=== PATIENT | female | born 1960 | race Caucasian/White ===

== ENCOUNTER 2024-02-16 06:58 | Observation (INO) ==
--- NOTE | 2024-01-02 15:25 | Anesthesiology Consultation ---
Date of Service January 02, 2024 Assessment & Plan (1) Encounter for pre-operative examination: - Infectious disease screening: Per assessment on 01/02/24: No known recent infectious disease contacts or current infectious disease symptoms. - Outpatient joint assessment: Pt currently scheduled for inpatient pathway. If surgeon requests review for outpatient joint pathway, patient is acceptable candidate for outpatient joint program from anesthesia standpoint pending surgeon's office assessment that patient is motivated, has good support and completes [facility] preop requirements. Chart Review Chart Review: Acceptable Risk for Surgery and Patient NOT seen in Pre Admission Testing History Surgery Operation Date: 02/16/24 09:00 Proposed Procedures p Right Anterior Total Hip Arthroplasty - Willian Peter DO Height/Weight Height: 5 ft 1.5 in Weight: 57.9 kg Allergies Allergy/AdvReac Type Severity Reaction Status Date / Time No Known Allergies Allergy Verified 12/22/23 07:58 Medications Home Medications Medication Instructions Recorded Confirmed Last Taken No Known Home Medications 12/22/23 12/22/23 Unknown Past Medical History Medical History Arthritis Hx of uterine prolapse Osteoporosis Exercise / Class Metabolic Activity II 4-5 Yardwork/Stairs/Walk up hill Past Family History Family History Other Atherosclerosis Breast cancer Family history non-contributory Past Surgical History Surgical History History of tonsillectomy Hx of colonoscopy Past Anesthesia History No Hx of Anesthesia Complications and No Family Hx of Anesthesia Complications History of PONV No Hx of PONV and No Hx of Motion Sickness Social History Smoking Status: Never smoker Do You Dip or Chew Tobacco: No Hx Alcohol Use: Yes alcohol intake frequency: a few times a month Hx Substance Use: No substance use type: does not use Review of Systems Patient denies chest pain, shortness of breath, dyspnea on exertion, fever, chills, cough, wheezing, palpitations. Physical Exam Vital Signs BP 105/67 P 54 TEMP 97.6 SP02 99%RA RESP 16 Physical Full cervical extension range of motion. Full TMJ range of motion. TMD 3 finger breaths Mallampati Score II Dentition: intact Lungs: clear throughout to auscultation Cardiac: regular rate and rhythm, no murmurs noted Spine: normal Carotid arteries: negative bruit Extremities: no LE edema Lab Results Anesthesia Preop Results Results Anesthesia Widget: WBC 8.37 K/ul (4.8-10.8) 01/02/24 Hgb 14.1 g/dl (12.0-16.0) 01/02/24 Hct 40.1 % (37.0-47.0) 01/02/24 Plt 348 K/uL (130-400) 01/02/24 Na 137 mmol/L (136-145) 01/02/24 K 4.1 mmol/L (3.5-5.1) 01/02/24 Cl 105 mmol/L (98-107) 01/02/24 CO2 27 mmol/L (21-32) 01/02/24 BUN 26 mg/dl (6-23) H 01/02/24 Creat 0.78 mg/dl (0.6-1.2) 01/02/24 Glucose Level 96 mg/dl (70-99(Fasting)) 01/02/24 PT 10.4 Seconds (9.0-12.0) 01/02/24 PTT 27 Seconds (21-31) 01/02/24 INR 1.0 (0.9-1.1) 01/02/24 Blood Type A Positive 01/02/24 Antibody Screen NEGATIVE 01/02/24 Testing Electrocardiogram Date: 01/02/24 SB at 50bpm. "Otherwise normal ECG" Chest X-Ray Date: 01/02/24 FINDINGS: No pneumothorax. No pleural effusions. The lungs are clear. Mild S- shaped scoliosis in [id number] degenerative disc disease within the thoracolumbar spine. The heart is normal in size. No acute fractures identified. IMPRESSION: No acute process.
--- NOTE | 2024-02-15 07:04 | History & Physical Report ---
Date of Service February 15, 2024 Assessment & Plan (1) Arthritis of right hip: We will proceed with a right total hip arthroplasty. Postoperatively she will be started on aspirin for DVT prophylaxis and kept overnight in the hospital for postop medical management. She plans to use [facility] upon discharge. History of Present Illness Chief Complaint: Osteoarthritis of the right hip. Primary Care Provider: Diego Mckenzie MD Kalyn is a pleasant 63-year-old female who has been dealing with chronic increasing right hip and groin pain. It is to the point where she cannot go on long walks anymore. She has lot of pain in her groin. It is affecting her quality of life. X-rays of clinical examination been diagnostic for osteoarthritis of the right hip. After failing conservative treatment, she has elected to proceed with a right total hip arthroplasty. Allergies Allergy/AdvReac Type Severity Reaction Status Date / Time No Known Allergies Allergy Verified 12/22/23 07:58 Home Medications Medication Instructions Recorded Confirmed Type No Known Home Medications 12/22/23 12/22/23 History Past Med/Surg History Problem List Arthritis of right hip Postmenopausal atrophic vaginitis Cystocele with uterine prolapse Uterine prolapse Medical History Hx of uterine prolapse Arthritis Osteoporosis Surgical History Hx of colonoscopy History of tonsillectomy Family History Other Atherosclerosis Breast cancer Family history non-contributory Social History Smoking Status: Never smoker Second Hand Exposure: No; Do You Dip or Chew Tobacco: No; Hx Alcohol Use: Yes Hx Substance Use: No Preferred Language: Pashto Communication Ability: Effective [employer] Associate Required: No Beliefs That Will Affect Care: None Current Living Situation: Spouse Feels Safe at Home: Yes Assistive Devices: Contacts Review of Systems All systems reviewed & are unremarkable except as noted in HPI & below. Physical Exam Physical examination of the right hip shows decreased range of motion. Pain with forced internal and external rotation. All of his pain is located in the groin.. Constitutional WD/WN, vitals as above Eyes PERRL, conjunctivae normal, anicteric sclerae ENMT external ear and nose normal, oropharynx normal Neck trachea midline, no thyromegaly Respiratory normal respiratory effort Cardiovascular RRR, no murmur, no edema Gastrointestinal (Abdomen) normal bowel sounds, soft, nontender, no hepatosplenomegaly Psychiatric A+Ox3, euthymic affect Results & Data Results & Data Laboratory Results . Diagnostic Findings X-rays of the right hip show advanced osteoarthritis with joint space narrowing, osteophyte formation, and cbnz-ne-wcig articulation. PG Care Time/CCT Total # of Minutes Spent Total Time Spent with Patient: Total time spent is greater than 50% in coordination of care (as documented) at patient's floor/unit and/or counseling patient: Coding Level of Care Code None Diagnoses Arthritis of right hip M16.11
[~2024-02-16 06:58] MED LIST: ROPIVACAINE 0.5% 5 MG/ML 30 ML VIAL ONE
--- OUTSIDE RECORDS SUMMARY | 2024-02-16 07:36 | External Medical Summary | Continuity of Care Document ---
Author Name Unknown Organization [address] [id number] Care Team Providers Care Funeral Location Manager Name Role Phone Diego Mckenzie Primary Care Physician [phone] [facility]counter [facility] [id number] Date(s): 01/31/24 - 01/31/[address] [address] [phone] Discharge Disposition: Home or Self Care Attending Physician: JONAH Yeung Tara Allergies, Adverse Reactions, Alerts No Known Allergies Medications Evenity 105 mg/1.17 mL subcutaneous solution Start: 01/11/24 4:03:00 PM EDT, 210 mg =, subQ, qmonth (30 days), Disp# 2.34 mL, Refills: 11, Pharmacy: [facility] Start Date: 01/11/24 Status: Ordered Problem List Condition Confirmation Course Effective Dates Status H ealth Status Informant Rash Confirmed Active Rash Confirmed Active Hamstring muscle strain 1 Confirmed Active Heel pain Confirmed Active Right hip pain Confirmed Active Hip pain, bilateral Confirmed Active Hyperkeratosis Confirmed Active Lentigo Confirmed Active Low back pain Confirmed Active Osteoporosis Confirmed Active 1right Procedures Procedure Date Related Diagnosis Body Site Status Tonsillectomy 1960 Completed History of tonsillectomy Completed Social History Social History Type Response Smoking Status Never smoked cigaret lee Sex Female Sex Representation Female (finding) Patient Care team information Care Team Personnel Name: JONAH Maurer, Kai E Position: Nurse Pract - Orthopaedic Surg Member Role: Lifetime Relationship Address: [address] [place] [address] [place] [id number] [place] Name: MD Mckenzie Paul R Position: Referring DIRECT Member Role: Primary Care Provider Address: [facility] [address] [facility] [place] [id number] [place] Name: Qamar Rosenberg Alisha Position: Pharmacist Member Role: Pharmacy - Lifetime Care Team Related Persons Name: FELICIANO AUGUST
[2024-02-16] MEDS: LR 500ML BOLUS, THEN 15ML/HR IV SCH (07:39)
[2024-02-16] MEDS: LR 60ML/HR IV SCH (07:39)
[2024-02-16] MEDS: dexAMETHasone**PF** 10 MG/ML VIAL IV SCH (07:40)
[2024-02-16] MEDS: ACETAMINOPHEN 500 MG TAB PO SCH ×2 (07:40→13:52)
[2024-02-16] MEDS: GABAPENTIN 300 MG CAP PO SCH (07:40)
[2024-02-16] MEDS: FAMOTIDINE 20 MG TAB PO SCH (07:40)
[2024-02-16] MEDS ORDERED: MIDAZOLAM HCL 1 MG/ML 2ML VIAL ONE (07:42)
[2024-02-16] MEDS ORDERED: PROPOFOL IV EMULSION 10 MG/ML 20 ML VIAL IV ONE (07:43)
--- NOTE | 2024-02-16 08:05 | History & Physical Bridge Note ---
Date of Service February 16, 2024 History & Physical Bridge Note I have examined the patient, reviewed the History & Physical and in the interval since the performance of the History & Physical I have noted the following changes of clinical significance: no changes noted
[2024-02-16] MEDS ORDERED: ATROPINE SULFATE 0.1 MG/ML 10ML SYR IV PRN (08:16)
[2024-02-16] MEDS ORDERED: ONDANSETRON INJ 2 MG/ML 2 ML VIAL IV PRN ×2 (08:16→11:14)
[2024-02-16] MEDS ORDERED: fentaNYL citrate PF 100 MCG/2 ML VIAL IV PRN (08:16)
[2024-02-16] MEDS ORDERED: ePHEDrine sulfate 50 MG/ML AMP IV PRN (08:16)
[2024-02-16] MEDS ORDERED: HYDROmorphone INJ 1 MG/ML SYRINGE IV PRN (08:16)
[2024-02-16] MEDS: TRANEXAMIC ACID 1,000 MG **IV Pre-op IV SCH (08:38)
[2024-02-16] MEDS: ceFAZolin 2000MG 2,000 MG/15 ML SYR IV SCH ×2 (08:52→17:22)
[2024-02-16] MEDS ORDERED: ePHEDrine sulfate 50 MG/5 ML SYR ONE (09:16)
[2024-02-16] MEDS: ORTHO JOINT ANESTHETIC ONE (09:30)
[2024-02-16] MEDS: TRANEXAMIC ACID 1,000 MG **IV Intra-op IV SCH (10:06)
--- NOTE | 2024-02-16 10:07 | Operative Report ---
PG Post Operative Report Pre & Post Diagnosis Operation Date: 02/16/24 08:55 Pre-Op Diagnosis: Arthritis of right hip Post-Op Diagnosis: Arthritis of right hip I identified the patient and participated in the time-out.: Yes Procedure Operation Date: 02/16/24 08:55 Actual Procedures p Right Anterior Total Hip Arthroplasty(Right) - Willian Peter DO Surgeon Willian Peter DO Divisional Merchandising Manager Willian Brooks PA-C Estimated Blood Loss 200 Findings Consistent with Post-Op Diagnosis Specimens Right femoral head Description of Procedure Implants used I used a ZimmerBiomet total hip arthroplasty system with a size 2 standard offset Avenir Complete stem, a 48 mm G7 cup with a 25mm screw, an E1 polyethylene liner, a 32 mm ceramic head with a -3.5 neck. Kalyn arrived at the hospital for the above procedure. She was seen in the preoperative holding area and the operative extremity was identified and signed. She was given a spinal anesthetic, a preoperative antibiotic, and TXA. She was then taken back to the operating room and laid on the table in the supine position. She was given basic sedation. The operative leg was secured to a Puristst leg positioner. The hip was then prepped and draped in sterile fashion. A timeout was done and the patient and the operative extremity was properly identified. An anterior approach was used. Dissection was taken down through the fascia and the tensor muscle belly was retracted laterally and the rectus was retracted medially. The circumflex vessels were identified and ligated. The capsule was then incised and tagged for later repair. The femoral neck was then cut and the femoral head was removed. The acetabulum was exposed. Time was spent doing a complete circumferential labral release. Sequential reaming of the acetabulum up to a size 47 reamer was done. Final reamings were done under fluoroscopy to ensure appropriate version. A Biomet 48 mm G7 cup was then impacted into place. A single 25 mm screw was placed. The E1 polyethylene liner was then snapped into place. Surrounding soft tissues were then injected with 100 cc of an orthopedic pain control cocktail. The proximal femur was then exposed. Sequential broaching up to a size 2 broach was done. Off that broach a size 32 head with a -3.5 neck was trialed. The hip was reduced and fluoroscopic images showed anatomic alignment of the implants in acceptable length. The broach was removed. The final size 2 standard offset Avenir Complete stem was then impacted into place. A ceramic 32 mm head with a -3.5 neck was then impacted onto the stem and the hip was reduced. Final fluoroscopic images showed anatomic alignment of the hip. The capsule was then closed with #1 Vicryl suture. A dilute betadyne lavage was then done for 3 minutes. The joint was then irrigated with normal saline solution. The fascia was closed with #1 PDS suture. Skin was closed with 2-0 Vicryl, marisa, and a Silverlon dressing. She was then transferred to a hospital bed and taken to the post anesthesia care unit in stable condition. She tolerated the procedure well. Willian Brooks PA-C, was present for the entire procedure. He was critical for patient positioning, prepping, draping, retraction exposure, wound closure and application of sterile dressing. I attest to the content of the Intraoperative Record and any orders documented therein. Any exceptions are noted below.
[2024-02-16] MEDS: ROPIV 0.5% 246mg, Ketorolac 30mg, EPINEPHrine 0.5mg in NSS INFIL SCH (10:11)
--- NOTE | 2024-02-16 10:44 | XRay Report ---
XR hip 1V RT w pelvis CLINICAL HISTORY: IN PACU - Post Surgical TECHNIQUE: 1 view of the right hip and single frontal view of the pelvis were obtained. Comparison: Comparison is made to hip radiographs 01/31/2014 FINDINGS: Patient is status post total hip arthroplasty with expected postsurgical changes including soft tissu e swelling and subcutaneous emphysema. IMPRESSION: Expected postoperative appearance status post placement of total hip arthroplasty. ACT 112: Negative or not required by law. Electronically signed by: Regis Bradford M.D. 02/16/2024 10:42 AM
--- NOTE | 2024-02-16 10:50 | Anesthesiology Progress Note ---
Date of Service February 16, 2024 Anesthesia Post Procedure Vital Signs Vital Signs: Temp Pulse Resp BP Pulse Ox O2 Del Method O2 Flow Rate 02/16/24 10:45 89 19 104/65 99 Room Air 02/16/24 10:35 82 17 94/71 L 100 Oxymask 5 02/16/24 10:27 36.1 C L 87 17 102/66 98 Oxymask 5 02/16/24 07:26 36.9 C 60 20 122/78 99 Room Air Transfer of Care Handoff Completed per policy Notes Mental Status: alert / awake / arousable and participated in evaluation Patient Amnestic to Procedure: Yes Nausea / Vomiting: adequately controlled Pain: adequately controlled Airway Patency, RR, SpO2: stable & adequate BP & HR: stable & adequate Hydration State: stable & adequate Neuraxial Anesthesia: was administered and sensory block is resolving Anesthetic Complications: no major complications apparent and Pt Satisfied with anesthetic care
--- NOTE | 2024-02-16 11:10 | Fluoroscopy Report ---
FL hip RT 1V CLINICAL HISTORY: RIGHT ANTERIOR HIP TECHNIQUE: 1 views were obtained with the C-arm in the OR with the above procedure. Total fluoroscopy time was 14.1 seconds. Radiation dose was 1.96 mGy. Comparison: Comparison is made to hip radiographs 12/06/2023 FINDINGS/IMPRESSION: Intraoperative images were obtained of right anterior hip arthroplasty. Please correlate with intraoperative fluoroscopy and operative report. ACT 112: Negative or not required by law. Electronically signed by: Regis Bradford M.D. 02/16/2024 11:09 AM
[2024-02-16] MEDS ORDERED: bisacodyL 10 MG SUPP PR PRN (11:14)
[2024-02-16] MEDS ORDERED: HYDROmorphone INJ 0.5 MG/0.5 ML SYR IV PRN (11:14)
[2024-02-16] MEDS ORDERED: MAGNESIUM HYDROXIDE SUSP 30 ML UDC PO PRN (11:14)
[2024-02-16] MEDS ORDERED: NALOXONE HCL 0.4 MG/1 ML VIAL/CARP IV PRN (11:14)
[2024-02-16] MEDS ORDERED: METOCLOPRAMIDE HCL INJ 5 MG/ML 2 ML VIAL IV PRN (11:14)
[2024-02-16] MEDS: SODIUM CHLORIDE 0.9% 1,000 ML IV SCH (11:59)
[2024-02-16] MEDS: KETOROLAC 30 MG/ML VIAL IV SCH (11:59)
[2024-02-16] MEDS: DOCUSATE SODIUM 100 MG CAP PO SCH (20:05)
[2024-02-16] MEDS: ASPIRIN 81 MG ECTAB PO SCH (20:05)
[2024-02-16] MEDS: SENNA 8.6 MG TAB PO SCH (20:05)
[2024-02-16] MEDS: oxyCODONE HCL IR 5 MG TAB (IMMEDIATE RELEASE) PO PRN (20:06)
--- NOTE | 2024-02-17 06:46 | Orthopedic Progress Note ---
Date of Service February 17, 2024 Assessment & Plan (1) Status post right hip replacement: Overall she is doing very well. She is not having much pain in the right hip. She will be seen by physical therapy today for ambulation and range of motion exercises. She is on aspirin for DVT prophylaxis. She can be discharged home later today. She will follow-up with orthopedics in 2 weeks. Subjective Kalyn was seen and examined at bedside this morning. Overall she is doing very well. She is not having much pain in the right hip. She has been up and ambulating to the bathroom. She has no complaints.. Review of Systems All systems reviewed & are unremarkable except as noted in HPI & below. Physical Exam On physical examination of the right hip, the dressing is clean and dry. She her leg is out full extension. She has active dorsiflexion plantarflexion of her right ankle.. Results & Data Results & Data Laboratory Results . Diagnostic Findings Postoperative x-rays of the right hip show the prosthesis to be in anatomic alignment without any evidence of fracture, dislocation, or loosening.. PG Care Time/CCT Total # of Minutes Spent Total Time Spent with Patient: Total time spent is greater than 50% in coordination of care (as documented) at patient's floor/unit and/or counseling patient: Coding Level of Care Code 54210 Post Operative Follow-Up Diagnoses Status post right hip replacement Z96.641
--- NOTE | 2024-02-17 06:47 | Discharge Summary ---
Date of Service February 17, 2024 Admission HPI (Per Admitting) Kalyn is a pleasant 63-year-old female who has been dealing with chronic increasing right hip and groin pain. It is to the point where she cannot go on long walks anymore. She has lot of pain in her groin. It is affecting her quality of life. X-rays of clinical examination been diagnostic for osteoarthritis of the right hip. After failing conservative treatment, she has elected to proceed with a right total hip arthroplasty. Admission Exam (Per Admitting) Physical examination of the right hip shows decreased range of motion. Pain with forced internal and external rotation. All of his pain is located in the groin.. Principal Diagnosis Same as "Discharge Diagnosis" noted below under Discharge Instructions. Discharge Exam On physical examination of the right hip, the dressing is clean and dry. She her leg is out full extension. She has active dorsiflexion plantarflexion of her right ankle.. Discharge Data Procedures Performed Operation Date: 02/16/24 08:55 Actual Procedures p Right Anterior Total Hip Arthroplasty(Right) - Willian Peter DO Ordered Studies 02/16/24 08:55 FL hip RT 1V Routine Hospital Course (1) Status post right hip replacement: On February 16, 2024 Kalyn arrived at [facility] and underwent a right hip replacement without complication. She had a spinal anesthetic. Postoperatively she was started on aspirin for DVT prophylaxis and transferred to the general orthopedic floors. Her hospital course was uneventful. On postop day #1, her vital signs were stable and her pain was well-controlled. She was able to participate well with physical therapy doing ambulation and range of motion exercises. She was then discharged to home. She will follow-up with orthopedics in 2 weeks. PG Care Time/CCT Total # of Minutes Spent Total Time Spent with Patient: Total time spent is greater than 50% in coordination of care (as documented) at patient's floor/unit and/or counseling patient: Discharge Plan Discharge Items Patient Disposition: Home - Self-Care Reason For Visit: Degenerative Joint Disease Right Hip Discharge Diagnosis: Right hip replacement Activity: Per Instructions section Non-emergency contact: Surgeon Call non-emergency contact if: your wound has increased redness and your wound has increased drainage Follow-up/Referrals: Diego Mckenzie MD [Primary Care Provider] - Diet: Regular Addtl Attending Provider Instructions: Activity and Therapy Recommendations: * If you are using [facility] then therapy will be provided at your home until they feel you have accomplished all of your goals. * If you are using [facility] then Physical Therapy will be provided until they feel you are ready to start Outpatient Physical Therapy. * If you are not using home therapy then Outpatient Physical Therapy should start about 3-5 days from your day of surgery. Therapy will last about 6-10 weeks * You were shown a series of exercises in the hospital. Do these exercises three times each day including the exercises you were shown in physical therapy. * Get up and walk several times each day.~ For the first four weeks, try not to stand or walk for more than one hour at a time. If you do stand or walk for more than one hour, you will not hurt anything, but your leg will likely swell.~~ * As you feel comfortable, you may change from the walker or crutches to a cane and~then to independent walking. Medications: * Narcotic You will likely be sent home from the hospital with a prescription for the narcotic pain medication that worked best throughout your stay. * Cefadroxil -take the antibiotic twice a day for 10 days to help prevent infection. * Aspirin Most patients will be required to take Aspirin 81mg twice a day for 6 weeks after surgery. This is obtained [id number] and a prescription is not necessary. * Other medications may be prescribed for specific circumstances. If you have any questions, please call the office at . * Resume previous home medications unless otherwise instructed TEDs/Elastic Stockings: The white elastic stockings help limit swelling and prevent blood clots from forming in your legs. The more you wear them, the more they work. Wear them for six weeks. Dressing Care: Leave the Silverlon dressing in place for 7 days. After 7 days you may remove the dressing. If the incision is not draining then you may leave the marisa open to air. If there is a little bit of drainage or if the marisa are getting stuck on your clothing then cover the incision with a dry dressing. The marisa will be removed at your 2 week follow-up appointment. Showering: You may shower with the Silverlon dressing in place. Do not let the shower spray hit the dressing directly. Pat the Silverlon dressing dry. If the dressing becomes wet underneath, then simply remove the dressing. Keep the incision dry until you are 7 days out from the day of surgery. After 7 days you may remove the Silverlon dressing and shower with the marisa exposed. Let soapy water run over the marisa and pat them dry. Do not scrub or soak the incision. Diet: You may resume your previous diet. Things To Watch For: * Drainage from the incision site that occurs more than one week after your surgery. * Increased redness at the incision site. * Fever above 102 degrees Fahrenheit. * Unusual chest pain or shortness of breath. * Call [facility] at with any of the above problems Follow-Up Visit: Follow-up with Dr. Peter's PA (Willian Brooks) 2-3 weeks after your day of surgery. He will remove your marisa and answer any questions. If you have any additional questions or concerns, Dr Peter is usually in the office at the same time and will be available An appointment was probably scheduled when you signed-up for surgery in the office. If you have any questions call Office Instructions: More detailed instructions as well as Frequently Asked Questions were provided in a folder by our office when you signed-up for surgery. Please review these instructions when you get home. If you have any further questions or concerns, please feel free to call the office at [phone] Pending Studies at Discharge: No Stand-Alone Forms: My [facility], Smoking Cessation Medications and DC Order Prescriptions: New oxycodone 5 mg Tablet 5 mg PO Q4H PRN (Reason: pain) Qty: 30 0RF cefadroxil 500 mg capsule 500 mg PO BID 10 Days Qty: 20 0RF aspirin 81 mg Tablet,Delayed Release (Dr/Ec) 81 mg PO BID 42 Days Qty: 0 0RF Discharge Orders: Discharge Order (Routine); Ordered 02/17/24 Ordered By: Willian Peter Admission Data Admit Date/Time: 02/16/24 10:27 Attending Provider: Willian Peter Admit Provider: Willian Peter Primary Care Provider: Diego Mckenzie
[2024-02-17 07:11] VITALS: RESP 16; TEMP 97.5
[2024-02-17] MEDS: dexAMETHasone 4 MG TAB PO SCH (08:20)
[2024-02-17] MEDS: MULTIVITAMIN TAB PO SCH (08:20)
[2024-02-17 10:46] VITALS: BP 120/72; PULSE 60; O2SAT 98
== END 2024-02-17 10:30 | disposition home or self-care (01) ==
LOC: 3E 06:58 → ASU 06:58